=== PATIENT | female | born 1965 | race Caucasian/White ===

== ENCOUNTER → 2019-07-01 | Outpatient (CLI) | payer BC ==
--- NOTE | 2019-07-01 09:33 | Diagnostic Imaging Report ---
EXAM: HIP RIGHT 2-3 VW (+/- PELVIS) DATE: 07/01/2019 8:20 AM INDICATION: Right hip pain COMPARISON: None FINDINGS: There is no evidence for acute fracture or dislocation. Bony mineralization is within normal limits. No focal lytic or blastic abnormality is identified. There is at most mild joint space narrowing. The surrounding soft tissues are unremarkable without evidence for radiopaque foreign body. IMPRESSION: No acute radiographic abnormality identified within the right hip. Signed by: Dr. Tony Hill MD on 07/01/2019 9:29 AM
== END ==
LOC: RAD 08:06
PROVIDERS: ATTEND Family Medicine
DX: M25.551 Pain in right hip (principal)